=== PATIENT | female | born 1940 | race Caucasian/White ===

== ENCOUNTER → 2019-05-25 | Outpatient (CLI) | payer MEDICARE ==
--- NOTE | 2019-05-26 07:29 | US ---
EXAMINATION TYPE: US extremity nonvasc mass LT DATE OF EXAM: 05/25/2019 COMPARISON: NONE CLINICAL HISTORY: L03.116 Cellulitis of left lower limb. Left lower leg area of concern x 2. Patient states having left lateral area biopsied x 1 week ago and had it opened up. Patient states having DVT study x 1 week ago at different facility = neg. Redness of lower leg. Per order, R/O abscess. Both areas of concern scanned. - Medial area of concern - no masses or lesions identified. - Lateral area of concern - at area of drainage, superficial hypoechoic lesion = 0.9 x 0.6 x 0.4 cm w ith echogenic area with shadow visualized - 0.1 cm IMPRESSION: 1. A hypoechoic lesion is seen in the left lateral area of concern superficial to the skin surface me asuring up to 9 mm with a hyperechoic punctate focus measuring 0.1 cm. No discrete fluid collection. This could represent the biopsied mass, phlegmonous change with a punctate focus of air or calcificat ion, or punctate foreign body with surrounding phlegmonous change. No drainable abscess. 2. Diffuse subcutaneous edema of the left lower extremity. 3. In the left medial area of concern edema is seen without fluid collections suggest abscess.
== END | disposition home or self-care (01) ==
LOC: RADUSWWP 15:37
PROVIDERS: ATTEND Internal Medicine Infectious Disease
DX: R22.42 Localized swelling, mass and lump, left lower limb (principal); Z88.2 Allergy status to sulfonamides